=== PATIENT | female | born 1950 | race Caucasian/White ===

== ENCOUNTER 2023-03-21 16:02 | Inpatient (IN) | payer MEDICARE, SELFPAY ==
[2023-03-21] VITALS (28 sets, daily range): BP systolic 93–169; BP diastolic 59–77; PULSE 83–104; RESP 16–18; TEMP 36.5; O2SAT 96–100; BMI 38.0
--- NOTE | ~2023-03-21 | XR_ITS ---
EXAMINATION: XR chest 2V Exam Date/Time: 03/21/2023 17:45 CDT HISTORY: weakness Comparison: None. RESULT: Lines, tubes, and devices: Cholecystectomy clips. Cervical fusion hardware. Anterior soft tissue hilary iccation/artifact. Lungs and pleura: Low volumes with crowding. Senescent change. No focal consolidation, effusion, or pneumothorax. Cardiomediastinal silhouette: Aortic arch calcification. Other: No acute osseous or upper abdominal finding. IMPRESSION: No acute cardiopulmonary process. Reviewed, dictated and finalized at location K.
--- NOTE | ~2023-03-21 | CT_ITS ---
EXAMINATION: CTA chest PE protocol DATE: 03/21/2023 19:13 INDICATION: syncope, chest pressure, +dimer/trop TECHNIQUE: Computed tomography angiography (CTA) of the chest was performed with 100 mL Omnipaque-350 intravenous contrast timed to evaluate the pulmonary arteries. Coronal maximum intensity projection 3D-reconstructions were created by the technologist. The dose-length product (DLP) was 490.42 mGy-cm. Automated exposure control and iterative reconstruction technique were employed. COMPARISON: None. FINDINGS: Lung parenchyma and airways: Mild diffuse reticulonodular opacities. The airways are clear.. Pleura: Unremarkable. Thoracic inlet, axillae and chest wall: Unremarkable. Thoracic aorta: No significant dilation. Moderate arch calcification. Mediastinum: Prominent prevascular node measuring up to 9 mm in short axis diameter. Heart and pericardium: Normal. Coronary artery calcifications: Moderate. Upper abdomen: Cholecystectomy. Pneumobilia. Fatty atrophy of the pancreas. Bones: No acute osseous finding. Incompletely visualized cervical fusion hardware. Pulmonary arteries: Study quality: Adequate. No pulmonary emboli detected. IMPRESSION: No CT evidence of acute pulmonary embolus. Mild respiratory bronchiolitis. Reviewed, dictated and finalized at location K.
--- NOTE | 2023-03-21 16:56 | ECG_ITS ---
Measurements Intervals [place] Rate: 82 P: 48 ND: 201 QRS: 6 QRSD: 77 T: -12 QT: 375 QTc: 439 Interpretive Statements SINUS RHYTHM LOW QRS VOLTAGE IN PRECORDIAL LEADS [QRS DEFLECTION < 1.0 mV IN CHEST LEADS] MODERATE T-WAVE ABNORMALITY, CONSIDER ANTEROLATERAL ISCHEMIA [-0.1+ mV T WAVE IN V3-V6] ABNORMAL ECG NO PREVIOUS ECG AVAILABLE FOR COMPARISON Electronically Signed On 03-22-2023 7:40:27 CDT by Yariel Mckeon M.D.
[2023-03-21 17:11] LABS: Basophils Absolute Auto 0.1 K/mm3 (0.0-0.1); Basophils Percent Auto 0.9 % (0.2-1.2); Eosinophils Absolute Auto 0.1 K/mm3 (0-0.3); Hematocrit 44.1 % (37.0-47.0); Hemoglobin 14.4 g/dL (12.0-15.0); Immature Granulocyte Absolute 0.05 K/mm3 (0.00-0.031); Immature Granulocyte Percent A 0.6 % (0-0.5); Lymphocytes Absolute Auto 1.42 K/mm3 (0.9-3.2); Lymphocytes Percent Auto 17.8 % (18.3-44.2); Mean Corpuscular HGB Conc 32.7 g/dl (32-36); Mean Corpuscular Hemoglobin 34.2 pg (26-34); Mean Corpuscular Volume 104.8 fl (80-100); Mean Platelet Volume 9.6 fl (7.4-10.4); Monocytes Absolute Auto 1.4 K/mm3 (0.1-0.6); Monocytes Percent Auto 16.9 % (2.6-8.5); Neutrophils Percent Auto 62.8 % (45.5-73.1); Platelet Count Result 229 k/mm3 (150-375); Red Blood Count 4.21 M/mm3 (4.2-5.4); Red Cell Distribution Width 12.4 % (11.5-14.5)
[2023-03-21 17:24] LABS: Alanine Aminotransferase 23 U/L (6-35); Alkaline Phosphatase 121 U/L (38-126); Anion Gap 10 mmol/L (8-16); Aspartate Amino Transferase 47 U/L (14-36); Blood Urea Nitrogen 20 mg/dL (7-17); Calcium 9.5 mg/dL (8.4-10.2); Carbon Dioxide 27 mmol/L (22-30); Chloride 95 mmol/L (98-107); Creatine Kinase 92 U/L (30-135); Estimated CRCL calculation 38 ml/min; Estimated Glomerular Filt Rate 40; Glucose 93 mg/dL (65-110); Magnesium 2.1 mg/dL (1.6-2.3); Potassium 3.6 mmol/L (3.4-5.0); Sodium 132 mmol/L (137-145)
[2023-03-21 17:27] LABS: Partial Thromboplastin Time 34.6 SECONDS (22.3-36.8)
--- NOTE | 2023-03-21 17:42 | ED.WEAKNESS ---
HPI - Weakness General Chief complaint: Weakness <CRISTINA Salmeron Last Filed: 03/21/23 22:58> Stated complaint: WEAK/ DEHYDRATED <CRISTINA Salmeron Last Filed: 03/21/23 22:58> Time Seen by Provider: 03/21/23 16:57 <CRISTINA Salmeron Last Filed: 03/21/23 22:58> Source: patient <CRISTINA Salmeron Last Filed: 03/21/23 22:58> Mode of arrival: EMS <CRISTINA Salmeron Last Filed: 03/21/23 22:58> Limitations: no limitations <CRISTINA Salmeron Last Filed: 03/21/23 22:58> History of Present Illness HPI Narrative: Patient is a 72 y/o female who presents to the ED via EMS with c/o weakness and near syncopal episode. Patient reports she has been dealing with gastrointestinal issues for the last 1 month. She has been on a clear liquid diet with decreased intake due to the symptoms. She was diagnosed with functional dyspepsia. She underwent a CT scan and EGD within the last 1 week at an outside hospital which showed stomach irritation, but biopsies were negative. Her Prilosec and gabapentin was increased and patient has been doing much better with this since. She does still complain of intermittent nausea. Patient then had a cortisone injection in her back at the [facility] in [place] today. She states she tried standing up after the injection, but complained of weakness, dizziness, lightheadedness, chest pressure, nausea. She states she was told her blood pressure was dropping at that time. She rested in the clinic for another hour, but developed the same symptoms when she stood up again. States chest pressure persisted approx 5 minutes until she sat down to rest. EMS was then called to bring the patient here. Patient denies any chest pain or pressure currently. Denies feeling short of breath. Denies significant abdominal pain at this time. Denies lower extremity pain or swelling. <CRISTINA Salmeron Last Filed: 03/21/23 22:58> Related Data Home medications: Home Medications Medication Instructions Recorded Confirmed amlodipine 5 mg tablet 5 mg PO DAILY 03/21/23 03/21/23 furosemide 20 mg tablet 20 mg PO DAILY 03/21/23 03/21/23 gabapentin 100 mg capsule 100 mg PO QPM 03/21/23 03/21/23 gabapentin 100 mg capsule 200 mg PO Q6H 03/21/23 03/21/23 hydrocodone 7.5 mg-acetaminophen 1 tablet PO Q6H 03/21/23 03/21/23 325 mg tablet isosorbide mononitrate 60 mg 60 mg PO DAILY 03/21/23 03/21/23 tablet,extended release 24 hr metoprolol succinate 25 mg 12.5 mg PO DAILY 03/21/23 03/21/23 tablet,extended release 24 hr omeprazole 20 mg capsule,delayed 40 mg PO BID 03/21/23 03/21/23 release ranolazine 1,000 mg 1,000 mg PO BID 03/21/23 03/21/23 tablet,extended release,12 hr rosuvastatin 40 mg tablet 40 mg PO DAILY 03/21/23 03/21/23 zolpidem 10 mg tablet 10 mg PO QHS 03/21/23 03/21/23 <Beryl Barr PA-C - Last Filed: 03/21/23 22:58> Allergies/Adverse reactions: Allergies Allergy/AdvReac Type Severity Reaction Status Date / Time ketorolac [From Toradol] AdvReac Gastrointestinal Verified 03/21/23 16:17 Upset <Beryl Barr PA-C - Last Filed: 03/21/23 22:58> Review of Systems Review of Systems: CONSTITUTIONAL: Denies fever, chills, or sweats. CARDIOVASCULAR: See HPI. RESPIRATORY: Denies cough or dyspnea. GASTROINTESTINAL: See HPI. MUSCULOSKELETAL: Denies back pain, joint pain, or myalgia. NEUROLOGIC: See HPI. <Beryl Barr PA-C - Last Filed: 03/21/23 22:58> All systems reviewed & are unremarkable except as noted in HPI and below <Beryl Barr PA-C - Last Filed: 03/21/23 22:58> [facility] Family History Family History: Family History (Updated 03/21/23 @ 22:17 by Francisco Rincon RN) Mother Diabetes mellitus Hx of CABG Uterine cancer Father Hx of CABG Sibling Hx of CABG <Beryl Barr PA-C - Last Filed: 03/21/23 22:58> Social Hi
[2023-03-21 17:46] LABS: Troponin I 0.049 ng/mL (0.000-0.034)
[2023-03-21 18:17] LABS: NT Pro B Type Natriuretic Pept 1150 pg/mL (19.9-100)
[2023-03-21] MEDS: SODIUM CHLORIDE 0.9% IV 1,000 ML 999 ML IV CONT ×2 (18:26→21:15)
[2023-03-21 18:48] LABS: D Dimer 1.43 ug/mL (<0.48)
[2023-03-21 20:14] LABS: Appearance Urine Cloudy (Clear); Bacteria Urine 1+ /hpf; Bilirubin Urine Negative (Negative); Blood Urine Trace (Negative); Color Urine Dark Yellow (Yellow); Glucose Urine UA Negative (Negative); Granular Casts Urine Present /lpf; Ketones Urine Trace mg/dL (Negative); Leukocyte Esterase Ur 2+ LEU/UL (Negative); Need Manual Microscopic Reviewed; Nitrate Urine Negative (Negative); Protein Urine 2+ mg/dL (Negative); Specific Grav Ur 1.023 (1.001-1.035); Squamous Epithelial Cell Urine Moderate /hpf (Few); WBC Urine 21-50 /hpf; pH Urine 5.5 (5.0-9.0)
[2023-03-21 20:15] LABS: Add Urine Microscopic? YES
--- NOTE | 2023-03-21 22:07 | PM.IMHP ---
H&P: HPI History of Present Illness Date/Time: 03/21/23 22:07 Chief Complaint: Dyspepsia, abdominal pain, chest heaviness, dizziness Narrative: This is a 72-year-old female with a significant past medical history of congestive heart failure, cardiac angina, minimal coronary artery disease diagnosed with catheterization over 10 years ago 40% stenoses of multiple coronary arteries per patient's history, nobody musculoskeletal pain from multiple neck surgeries on on pain medications, hypertension, hyperlipidemia, who presented acutely from the [facility] clinic in [place] after the patient had a cortisone injection in her back. She acutely developed nausea chest pressure lightheadedness weakness and dizziness. She was told her blood pressure was dropping at that time. She rested in the clinic for an hour but then developed the same symptoms again when she stood up. She was positive for orthostatic hypotension at the clinic when she was assessed. The chest pressure persisted until she sat down to rest. The EMS was then called to bring the patient here. This history started 3 weeks ago. The patient was not eating 3 weeks ago saw a GI specialist last Saturday at [facility] in [place]. Time skip 1 g per day. Her Prilosec was increased from 20 mg per day to 40 mg twice a day per day. The patient had a CT scan showing gastritis. The patient also had a biopsy which was negative for H pylori. When she increase the gabapentin dose 1 week ago, she began having heart palpitations. Today the patient went to the [facility] clinic to get an injection. When she stood up after sitting down get the injection she got dizzy and started having chest heaviness. In the ER the patient was again assess for orthostatic hypotension and was again positive. She was given 2 L normal saline bolus. When we assessed the orthostatic vital signs about 10 minutes ago, they were negative. EKG showed T-wave inversions in the anterolateral leads. No prior EKG is present for comparison. First baseline troponin was elevated 0.049. Second troponin was elevated at 0.05. BNP was elevated to 11 50. Chest x-ray does not show evidence of pulmonary edema. D-dimer was elevated to 1.43. CTA was negative for acute evidence of pulmonary embolus. It did show mild bronchiolitis. The patient did have coronary artery calcifications that were moderate but these were not greatly assessed with this study. The patient is seen at [facility] as an outpatient. Her websphere portal developer is Dr. Remi Medel- [phone]. She carries a diagnosis of congestive heart failure of unknown type, CAD of unknown type as well, typical angina on Ranexa for episodes of angina at home. The patient's family history is positive for bypass surgery in both her mom, dad, and brothers. Of note, the patient's past medical history is relevant for over 13 biliary procedures and stents that the patient has had. This problem was not fully evaluated as it was not exactly relevant to her current medical problem. Review of Systems Review of Systems: Negative otherwise specified in the [facility] Family History Family History Mother Diabetes mellitus Hx of CABG Uterine cancer Father Hx of CABG Sibling Hx of CABG Comments The patient worked as a nurse for 30 years. Twenty-two years in [employer] and 8 years in the longterm. She retired in 2013. She has no history of drinking or smoking. She gets back injections every 3 months. She also does bowling recreationally. She could walk up until 3 weeks ago. Now she uses a walker. Meds Home Medications and Allergies Allergies Allergy/AdvReac Type Severity Reaction Status Date / Time ketorolac [From Toradol] AdvReac Gastrointestinal Verified 03/21/23 16:17 Upset Vital Signs Vital Signs - 24 hr 03/21/23 15:59 03/21/23 16:16 03/21/23 16:30 Pulse Rate 88 Respiratory Rate 18 Blood Pressure 169/64 H Pulse Oximetry 97 100 100 Oxygen Delivery
--- NOTE | 2023-03-21 22:28 | ADMGEN ---
This patient, Malgorzata Almonte, was admitted to IMU Room 214-01. Patient/family oriented to hospital policies and general routines including ID bracelet, bed and alarms, visiting hours, pain management, procedures, bathroom and other care routines, personal items, smoking policy, room service/diet, and visiting hours. Information on how to activate the Rapid Response Team has been discussed. Patient/Family are encouraged to report perceived risks to care and to ask questions if they do not understand what they are told or what they should do.
[2023-03-21] MEDS: RANOLAZINE 500 MG TAB.ER.12H 1000 MG PO (23:08)
[2023-03-21] MEDS: HYDROcodone/acetaminophen (*CRX) 7.5-325 MG TABLET 1 TAB PO (23:09)
[2023-03-21] MEDS: CLOPIDOGREL BISULFATE 300 MG TABLET PO (23:09)
[2023-03-21] MEDS: PANTOPRAZOLE 40 MG TABLET PO (23:10)
[2023-03-21] MEDS: GABAPENTIN 300 MG CAPSULE PO (23:10)
[2023-03-21 23:35] LABS: Troponin I 0.058 ng/mL (0.000-0.034)
[2023-03-22] VITALS (21 sets, daily range): BP systolic 108–147; BP diastolic 48–69; PULSE 78–101; RESP 14–20; TEMP 36.1–36.8; O2SAT 99–100; BMI 38.0
--- NOTE | 2023-03-22 05:00 | ECG_ITS ---
Measurements Intervals [place] Rate: 84 P: -21 GA: 164 QRS: 6 QRSD: 90 T: -45 QT: 398 QTc: 471 Interpretive Statements SINUS RHYTHM MODERATE T-WAVE ABNORMALITY, CONSIDER ANTEROLATERAL ISCHEMIA [-0.1+ mV T WAVE IN V3-V6] ABNORMAL ECG COMPARED TO ECG 03/21/2023 17:07:35 NO SIGNIFICANT CHANGES Electronically Signed On 03-22-2023 7:45:44 CDT by Yariel Mckeon M.D.
[2023-03-22 05:57] LABS: Hematocrit 37.4 % (37.0-47.0); Hemoglobin 12.4 g/dL (12.0-15.0); Mean Corpuscular HGB Conc 33.2 g/dl (32-36); Mean Corpuscular Hemoglobin 34.8 pg (26-34); Mean Corpuscular Volume 105.1 fl (80-100); Mean Platelet Volume 9.3 fl (7.4-10.4); Platelet Count Result 187 k/mm3 (150-375); Red Blood Count 3.56 M/mm3 (4.2-5.4); White Blood Count 4.6 K/mm3 (4.5-10.0)
[2023-03-22 06:09] LABS: Alanine Aminotransferase 20 U/L (6-35); Albumin Level 3.2 g/dL (3.5-5.1); Alkaline Phosphatase 95 U/L (38-126); Anion Gap 7 mmol/L (8-16); Aspartate Amino Transferase 40 U/L (14-36); Bilirubin,Total 0.7 mg/dL (0.2-1.3); Blood Urea Nitrogen 18 mg/dL (7-17); Calcium 8.9 mg/dL (8.4-10.2); Carbon Dioxide 24 mmol/L (22-30); Chloride 102 mmol/L (98-107); Estimated CRCL calculation 45 ml/min; Estimated Glomerular Filt Rate 49; Glucose 102 mg/dL (65-110); Magnesium 2.1 mg/dL (1.6-2.3); Potassium 3.9 mmol/L (3.4-5.0); Sodium 133 mmol/L (137-145)
[2023-03-22 06:21] LABS: Troponin I 0.085 ng/mL (0.000-0.034)
[2023-03-22] MEDS: ENOXAPARIN 100 MG/ML SYRINGE 95 MG SUB-Q (06:52)
[2023-03-22] MEDS: HYDROcodone/acetaminophen (*CRX) 7.5-325 MG TABLET 1 TAB PO ×3 (06:56→22:11)
[2023-03-22] MEDS: ROSUVASTATIN 20 MG TABLET 40 MG PO (08:46)
[2023-03-22] MEDS: FUROSEMIDE 40 MG TABLET PO (08:46)
[2023-03-22] MEDS: PANTOPRAZOLE 40 MG TABLET PO ×2 (08:46→20:05)
[2023-03-22] MEDS: ASPIRIN 81 MG ENTERIC TABLET PO (08:46)
[2023-03-22] MEDS: amLODIPine BESYLATE 5 MG TABLET 10 MG PO (08:46)
[2023-03-22] MEDS: RANOLAZINE 500 MG TAB.ER.12H 1000 MG PO ×2 (08:46→20:05)
[2023-03-22] MEDS: METOPROLOL SUCCINATE EXT REL 12.5 MG TABCR PO (08:47)
[2023-03-22] MEDS: CLOPIDOGREL BISULFATE 75 MG TABLET PO (08:47)
[2023-03-22] MEDS: GABAPENTIN 300 MG CAPSULE PO ×3 (08:47→17:20)
--- NOTE | 2023-03-22 12:27 | PM.IMPN ---
Progress Note: A&P Assessment and Plan (1) NSTEMI (non-ST elevated myocardial infarction): Code(s): I21.4 - Non-ST elevation (NSTEMI) myocardial infarction Status: Acute Assessment and Plan: The patient has had an NSTEMI. Continue aspirin Plavix Cardiology consulted Hold beta-frieda in case patient goes for a stress test. Keep NPO Continue Norvasc 10 mg per day Continue Lasix 40 mg per day Continue Ranexa 1000 mg twice a day Continue Crestor 40 mg per day (2) Orthostatic hypotension: Code(s): I95.1 - Orthostatic hypotension Status: Acute Assessment and Plan: This problem has resolved Hold Lasix since patient is NPO (3) Chronic pain: Code(s): G89.29 - Other chronic pain Status: Acute Assessment and Plan: Continue p.r.n. [place] 7.5 mg q.6 hours for musculoskeletal pain Continue gabapentin 900 mg per day (4) Vitamin D deficiency: Code(s): E55.9 - Vitamin D deficiency, unspecified Status: Acute Assessment and Plan: Continue patient's home vitamin-D (5) Dyspepsia: Code(s): R10.13 - Epigastric pain Status: Acute Assessment and Plan: Continue Prilosec 40 mg twice a day Subjective Date/time seen: 03/22/23 12:27 Interval history: No chest pain at present Review of Systems Review of Systems: Negative otherwise specified in the HPI Exam Narrative: Gen: calm middle aged woman in NAD HENT: unremarkable Eyes: EOMI Neck: supple, full ROM Lungs: CTAB CV: rrr, s1, s1, 2/6 early SM at the L[facility] Neuro: Normal Musculoskeletal: Normal Objective Data Vital Signs Vital Signs: Vital Signs - 24 hr 03/21/23 15:59 03/21/23 16:16 03/21/23 16:30 Temperature Pulse Rate 88 Respiratory Rate 18 Blood Pressure 169/64 H Pulse Oximetry 97 100 100 Oxygen Delivery Room Air 03/21/23 16:32 03/21/23 16:45 03/21/23 17:00 Temperature Pulse Rate Respiratory Rate Blood Pressure 167/77 H Pulse Oximetry 100 100 99 Oxygen Delivery 03/21/23 17:02 03/21/23 17:15 03/21/23 17:58 Temperature Pulse Rate 85 Respiratory Rate Blood Pressure 139/72 145/68 H Pulse Oximetry 99 99 Oxygen Delivery 03/21/23 18:00 03/21/23 18:01 03/21/23 17:30 Temperature Pulse Rate 84 87 Respiratory Rate Blood Pressure 136/68 113/60 Pulse Oximetry 99 Oxygen Delivery 03/21/23 17:32 03/21/23 17:47 03/21/23 18:09 Temperature Pulse Rate Respiratory Rate Blood Pressure 140/76 Pulse Oximetry 100 100 Oxygen Delivery 03/21/23 18:21 03/21/23 18:36 03/21/23 20:04 Temperature Pulse Rate 88 Respiratory Rate 17 Blood Pressure 93/65 L Pulse Oximetry 100 100 100 Oxygen Delivery 03/21/23 20:32 03/21/23 19:15 03/21/23 19:35 Temperature Pulse Rate 83 Respiratory Rate 16 Blood Pressure 112/71 Pulse Oximetry 99 98 100 Oxygen Delivery 03/21/23 19:45 03/21/23 20:58 03/21/23 21:05 Temperature Pulse Rate 86 86 Respiratory Rate 18 16 Blood Pressure 124/59 L Pulse Oximetry 100 98 96 Oxygen Delivery 03/21/23 21:30 03/21/23 21:35 03/21/23 21:42 Temperature Pulse Rate 88 98 104 H Respiratory Rate Blood Pressure 135/66 145/74 H 147/69 H Pulse Oximetry Oxygen Delivery 03/21/23 22:10 03/22/23 00:00 03/22/23 00:00 Temperature 97.7 F 97.8 F Pulse Rate 88 94 83 Respiratory Rate 18 18 Blood Pressure 132/73 145/52 H Pulse Oximetry 100 100 Oxygen Delivery 03/22/23 02:00 03/22/23 04:00 03/22/23 04:00 Temperature 97.6 F Pulse Rate 79 84 80 Respiratory Rate 18 Blood Pressure 135/58 L Pulse Oximetry 100 Oxygen Delivery 03/22/23 06:00 03/22/23 08:26 03/22/23 08:00 Temperature 97.4 F L Pulse Rate 82 83 Respiratory Rate 20 Blood Pressure 135/56 L Pulse Oximetry 100 Oxygen Delivery Room Air 03/22/23 08:00 03/22/23 10:00 03/22/23 12:00 Temperature Pulse Rate
--- NOTE | 2023-03-22 13:02 | PM.CNCAR ---
Assessment and Plan Assessment and plan (1) Chest pressure: Code(s): R07.89 - Other chest pain Status: Acute (2) Elevated troponin: Code(s): R77.8 - Other specified abnormalities of plasma proteins Status: Acute Plan This is a 72-year-old woman with a multitude of complaints among which are worsening exertional shortness of breath and chest pain she is known to have coronary artery disease that has been managed medically for the last decade. She has troponin levels that are elevated but not really in a concerning pattern rising and falling but rather flat. Her electrocardiogram is significantly abnormal unfortunately we have no previous records are ECGs with which to compare. In this setting I believe we should proceed with a follow-up angiogram. The patient was presented with the options of intensifying her medical therapy in having this done by her established manager surgical or proceeding here at [facility]. She wishes to proceed at our hospital so I will make plans for that this afternoon. Further recommendations will be forthcoming after the angiogram Yariel Mckeon MD [facility] History of Present Illness History of Present Illness Consult date/time: 03/22/23 13:02 Reason For Visit: Near Syncope, Chest Pain, Elevated Troponin, HEART Narrative: This is a 72-year-old woman with a rather complex and somewhat confusing history. I am seeing her at the request of the hospitalist because of concern regarding acute coronary syndrome/non ST elevation AR. According to the patient she is a fairly good historian she is known to have coronary artery disease that has been angiographically mild and has been managed by a manager surgical elsewhere for about a decade. She describes having some chest pain about 10 years ago having had a stress test which was abnormal which led to an angiogram that was done at another hospital. She has been doing well with medical therapy interestingly this has included Ranexa amlodipine metoprolol and isosorbide as well as rosuvastatin. She states that she was brought to this hospital yesterday because she was having symptoms of problematic orthostasis which occurred after a pain injection was given to her in the back. She has been having difficulty with chronic back pain and receiving injections. Yesterday apparently after she got a back injection she was feeling poorly and was significantly orthostatic. They apparently gave her some fluid watched her for about an hour in this problem continued and so she was sent to the emergency department. It sounds like separate from this she has also been having worsening exertional dyspnea with chest pain for the last several weeks. She describes chest heaviness and shortness of breath with modest activities walking about the house. She did not bring the symptoms to the attention of her physicians. After admission to the hospital here yesterday the patient's electrocardiogram was found to show some precordial T-wave inversions although we do not have any old ECGs for comparison. Her troponin levels were sampled x4 sets are out of normal range but are relatively flat. She was started on anti-platelet therapy by the hospitalist given some Lovenox yesterday with the last injection this morning. In this setting I am asked to see her in consultation. Review of Systems Constitutional: Constitutional: Reports lethargy Eyes: Eyes: Reports no additional eye complaints ENT: Reports system reviewed and no additional complaints, except as documented Cardiovascular: Cardiovascular: Reports as per HPI and Reports chest pain Respiratory: Respiratory: Reports dyspnea on exertion Gastrointestinal: Gastrointestinal: Reports as per HPI Musculoskeletal: Musculoskeletal: Reports as per HPI and Reports back pain Integumentary/Breasts: Skin/Breast: Reports system reviewed and no additional complaints, except as docu Neurologic: Reports system reviewed and no
--- NOTE | 2023-03-22 13:14 | WPDMODSED ---
Moderate Sedation Note-Pt Data Patient Data Diagnosis: Coronary artery disease being treated medically Recent worsening exertional dyspnea with chest discomfort Elevated troponin Present Complaint: Exertional shortness of breath with chest pain Procedure to be performed/Plan: Left heart catheterization Allergies Allergy/AdvReac Type Severity Reaction Status Date / Time ketorolac [From Toradol] AdvReac Gastrointestinal Verified 03/21/23 16:17 Upset Home Medications Medication Instructions Recorded Confirmed Type amlodipine 5 mg tablet 5 mg PO DAILY 03/21/23 03/21/23 History furosemide 20 mg tablet 20 mg PO DAILY 03/21/23 03/21/23 History gabapentin 100 mg capsule 100 mg PO QPM 03/21/23 03/21/23 History gabapentin 100 mg capsule 200 mg PO Q6H 03/21/23 03/21/23 History hydrocodone 7.5 mg-acetaminophen 1 tablet PO Q6H 03/21/23 03/21/23 History 325 mg tablet isosorbide mononitrate 60 mg 60 mg PO DAILY 03/21/23 03/21/23 History tablet,extended release 24 hr metoprolol succinate 25 mg 12.5 mg PO DAILY 03/21/23 03/21/23 History tablet,extended release 24 hr omeprazole 20 mg capsule,delayed 40 mg PO BID 03/21/23 03/21/23 History release ranolazine 1,000 mg 1,000 mg PO BID 03/21/23 03/21/23 History tablet,extended release,12 hr rosuvastatin 40 mg tablet 40 mg PO DAILY 03/21/23 03/21/23 History zolpidem 10 mg tablet 10 mg PO QHS 03/21/23 03/21/23 History Current Medications: Active Medications Hydrocodone Bitart/Acetaminophen (Hydrocodone/Acetaminophen (*Crx) 7.5-325 Mg Tablet) 1 tab PO Q6H PRN PRN Reason: Pain Rated 7-10 Last Admin: 03/22/23 06:56 Dose: 1 tab Amlodipine Besylate (Amlodipine Besylate 5 Mg Tablet) [address] [facility] Last Admin: 03/22/23 08:46 Dose: 10 mg Aspirin (Aspirin 81 Mg Enteric Tablet) [address] [facility] Last Admin: 03/22/23 08:46 Dose: 81 mg Clopidogrel Bisulfate (Clopidogrel Bisulfate 75 Mg Tablet) [address] [facility] Last Admin: 03/22/23 08:47 Dose: 75 mg Gabapentin (Gabapentin 300 Mg Capsule) 300 mg PO TID [facility] Last Admin: 03/22/23 13:05 Dose: 300 mg Pantoprazole Sodium (Pantoprazole 40 Mg Tablet) 40 mg PO Q12HR [facility] Last Admin: 03/22/23 08:46 Dose: 40 mg Ranolazine (Ranolazine 500 Mg Tab.Er.12h) 1,000 mg PO Q12HR [facility] Last Admin: 03/22/23 08:46 Dose: 1,000 mg Rosuvastatin Calcium (Rosuvastatin 20 Mg Tablet) 40 mg PO QAM [facility] Last Admin: 03/22/23 08:46 Dose: 40 mg Sedation/Anesthesia: No previous sedation/anesthesia problems (including family history). [facility] Family History Family History (Updated 03/21/23 @ 22:17 by Francisco Rincon RN) Mother Diabetes mellitus Hx of CABG Uterine cancer Father Hx of CABG Sibling Hx of CABG Social History Social History Smoking status: Never smoker Alcohol intake: never Substance use: never Lack of Transportation: No Lack of Food: Never True Current Housing: I Have Housing Concerned About Future Housing: No Difficulty Paying Gas/Electric Bills: No Difficulty Paying for Meds: No Currently Unemployed: No Education: Associate Degree Difficulty w/ Childcare or Family Care: No Spiritual care concerns: No Mod Sed Physical Exam Physical Exam Pre Procedural Exam: Normal: Neck (Difficult to assess JVD because of obesity), Throat, Airway, Lungs, Heart Size, Heart Rate (Grade 2/6 systolic murmur at the left sternal border), Heart Rhythm, Neuro Exam and Extremities and Variation: Appearance (Pleasant obese white female no distress) Hours since solid foods: 12 Hours since liquid intake: 12 Mallampati Classification: class II Internal Medicine - PN: Obj Da Vital Signs Vital Signs: Vital Signs - 24 hr 03/21/23 15:59 03/21/23 16:16 03/21/23 16:30 Temperature Pulse Rate 88 Respiratory Rate 18 Blood Pressure 169/64 H Pulse Oximetry 97 100 100 Oxygen Delivery Room Air 03/21/23 16:32 03/21/23 16:45 03/21/23 17:00 Temperature Puls
--- NOTE | 2023-03-22 14:08 | WPDCARDPROC ---
Cardiac Cath Procedure Note Date of procedure:: 03/22/23 Performing physician:: Yariel Mckeon MD Indication:: history of coronary artery disease being treated medically ACS/non STEMI Brief clinical history:: this is a 72-year-old woman history of hypertension, obesity and reported history of angiographically mild coronary disease which is being treated medically. She was admitted to the hospital with orthostatic hypotension which became problematic after pain injection in her back. She also has a history of exertional chest discomfort is worsening in recent weeks. Troponin levels have been sampled are elevated but flat. ECG shows precordial T-wave inversions. In this setting follow-up angiography has been recommended. Procedure Procedure performed:: Left ventriculogram coronary angiogram Angio-Seal to right femoral artery Sedation/Medication given:: fentanyl 50 mg Versed 2 mg case start 1347 p.m. case end time 2:05 p.m. sedation provided by Therese Gorman RN, trained observer Access site:: right femoral artery Estimated blood loss:: 20 cc Procedure note:: patient was brought to the cardiac catheterization lab in the postabsorptive state the right femoral triangle was prepared and draped in the usual fashion. Anesthesia was provided with 1% lidocaine infiltrated locally. Using the modified Seldinger technique a 5 Cymraes vascular sheath was placed in the right common femoral artery grade after this left heart catheterization was carried out. I used a 5 Cymraes angled pigtail catheter to measure left-sided hemodynamics and to inject LV g in the R AO projection. Following this I used a standard 5 Cymraes FL4 catheter to engage and inject the left coronary artery and 5 Cymraes JR4 catheter to engage and inject the right coronary artery. The cineangiograms were then reviewed and the case was terminated. An Angio-Seal device was deployed at the arterial puncture site following an angiogram of the femoral artery to confirm suitable sheath location. The very good hemostasis was provided with this. Procedure was well tolerated and uncomplicated. There was no evidence of groin hematoma when she left the cardiac catheterization lab. Findings:: Hemodynamics: Central aortic pressure is 124 over 50 left ventricle 128/0 end-diastolic 10 no gradient on pullback across the valve. Left ventricle: The LV is normal in size there is mild concentric hypertrophy identified there is hyperdynamic systolic function with visually estimated ejection fraction of 80%. The left main coronary artery is nicely patent and medium in caliber left anterior descending is a medium caliber artery giving rise to 2 diagonals and septal perforators. The LAD extends down to but not around the apex. The LAD is angiographically unremarkable. A very small high diagonal branch has minimal luminal irregularities but no functionally significant stenosis is seen. Circumflex is a medium caliber artery giving rise to the marginal branches. The circumflex system is angiographically free of disease. The right coronary artery is large in caliber and dominant to the posterior circulation. There is ostial calcification of the right coronary artery but there are no stenotic lesions seen throughout the extent of the vessel. Conclusion:: 1. Minimal coronary disease consisting of mild luminal irregularities in a small diagonal branch of the LAD as well as ostial calcification of the RCA but with no stenosis identified. 2. Hyperdynamic left ventricular systolic function 3. diagnosis of non ST elevation MO should be discarded Yariel Mckeon MD [facility]
[2023-03-22] MEDS: SODIUM CHLORIDE 0.9% IV 1,000 ML 125 ML IV CONT (15:12)
[2023-03-22] MEDS: ZOLPIDEM TARTRATE (*CRX) 5 MG TABLET 10 MG PO (21:07)
[2023-03-22] MEDS: CALCIUM CARBONATE (TUMS) 500 MG (200 MG ELEMENTAL) PO (21:07)
[2023-03-23] VITALS (9 sets, daily range): BP systolic 108–128; BP diastolic 51–58; PULSE 79–88; RESP 18–20; TEMP 36.2–36.9; O2SAT 99–100
[2023-03-23] MEDS: HYDROcodone/acetaminophen (*CRX) 7.5-325 MG TABLET 1 TAB PO ×2 (07:22→13:52)
--- NOTE | 2023-03-23 09:39 | PM.PNCARD ---
Progress Note: A&P Assessment and Plan (1) Elevated troponin: Code(s): R77.8 - Other specified abnormalities of plasma proteins Status: Acute (2) Chest pressure: Code(s): R07.89 - Other chest pain Status: Acute Plan 72-year-old lady with angiographically minimal coronary disease. I would treat her with just low-dose aspirin and nothing else in my opinion. She has been following with another clinical pharmacy specialist for a number of years. I would consider stable for discharge today from my perspective and she can follow up with her established clinical pharmacy specialist. Yariel Mckeon MD [facility] Subjective Date/time seen: Date of service: 03/23/23 09:39 Interval history: Follow-up visit in this 72-year-old lady with: Symptoms of intermittent chest pain [place] and a multitude of other symptoms including problematic/symptomatic orthostasis following pain injection in her back prompting admission here. Catheterization done yesterday demonstrated angiographically minimal coronary artery plaquing. No cardiovascular complaints this morning Exam Const: General: comfortable and no acute distress Other: Pleasant obese white female no distress HENMT: Mouth: Yes moist mucous membranes Eyes: Sclera: sclerae normal Neck: Neck: supple Resp: Effort & Inspection: normal respiratory effort Auscultation: clear to auscultation bilaterally Cardio: Rate: regular rate Rhythm: regular rhythm Skin: General skin exam: normal color Neuro: Other: Alert and oriented x3 Extrem: Other: No edema, good pulses Objective Data Vital Signs Vital Signs: Vital Signs - 24 hr 03/22/23 10:00 03/22/23 12:00 03/22/23 12:26 Temperature 36.3 C L Pulse Rate 84 85 Respiratory Rate 18 Blood Pressure 130/53 L Pulse Oximetry 100 Oxygen Delivery Room Air 03/22/23 12:00 03/22/23 14:45 03/22/23 14:30 Temperature Pulse Rate 83 80 78 Respiratory Rate 16 14 Blood Pressure 114/63 108/48 L Pulse Oximetry 100 100 Oxygen Delivery Room Air Room Air 03/22/23 15:00 03/22/23 15:15 03/22/23 15:30 Temperature Pulse Rate 79 83 82 Respiratory Rate 20 18 16 Blood Pressure 109/50 L 120/54 L 114/55 L Pulse Oximetry 100 100 100 Oxygen Delivery Room Air Room Air Room Air 03/22/23 14:00 03/22/23 16:00 03/22/23 16:37 Temperature 36.8 C Pulse Rate 84 87 Respiratory Rate 20 Blood Pressure 147/53 H Pulse Oximetry 100 Oxygen Delivery Room Air 03/22/23 16:00 03/22/23 17:07 03/22/23 18:00 Temperature 36.7 C Pulse Rate 92 94 101 H Respiratory Rate 18 Blood Pressure 122/69 Pulse Oximetry 99 Oxygen Delivery 03/22/23 20:00 03/22/23 20:00 03/22/23 22:00 Temperature 36.1 C L Pulse Rate 90 90 97 Respiratory Rate 18 Blood Pressure 108/54 L Pulse Oximetry 100 Oxygen Delivery 03/23/23 00:00 03/23/23 00:00 03/23/23 02:00 Temperature 36.2 C L Pulse Rate 84 84 81 Respiratory Rate 18 Blood Pressure 108/51 L Pulse Oximetry 100 Oxygen Delivery 03/23/23 04:00 03/23/23 04:00 03/23/23 06:00 Temperature 36.7 C Pulse Rate 79 85 81 Respiratory Rate 18 Blood Pressure 126/58 L Pulse Oximetry 100 Oxygen Delivery 03/23/23 08:23 Temperature 36.9 C Pulse Rate 85 Respiratory Rate 18 Blood Pressure 128/51 L Pulse Oximetry 100 Oxygen Delivery Intake/Output Intake/Output: Intake & Output 03/20/23 03/21/23 03/22/23 03/23/23 23:59 23:59 23:59 23:59 Intake Total 2050 690 1550 Output Total 1700 800 Balance 2050 -1010 750 Meds/Results Medications: Active Medications Generic Name Dose Route Start Last Admin Trade Name Freq PRN Reason Stop Dose Admin Hydrocodone Bitart/Acetaminophen 1 tab 03/21/23 22:31 03/23/23 07:22 Hydrocodone/Acetaminophen (*Crx) 7.5-325 Mg Tablet PO 1 tab Q6H PRN Administration Pain Rated 7-10 Amlodipine Besylate 10 mg 03/22/23 09:00 03/22/23 08:46 Amlodipine Besylate 5 M
[2023-03-23] MEDS: RANOLAZINE 500 MG TAB.ER.12H 1000 MG PO (09:48)
[2023-03-23] MEDS: ROSUVASTATIN 20 MG TABLET 40 MG PO (09:48)
[2023-03-23] MEDS: PANTOPRAZOLE 40 MG TABLET PO (09:49)
[2023-03-23] MEDS: ASPIRIN 81 MG ENTERIC TABLET PO (09:49)
[2023-03-23] MEDS: amLODIPine BESYLATE 5 MG TABLET 10 MG PO (09:49)
[2023-03-23] MEDS: GABAPENTIN 300 MG CAPSULE PO (09:49)
--- NOTE | 2023-03-23 12:43 | PM.DS ---
DS: Admitting Diagnosis Discharge Date 03/23/2023 Admitting Diagnosis Chest pain DS: Discharge Diagnosis Discharge Diagnosis (1) Chest pressure: Code(s): R07.89 - Other chest pain Status: Acute (2) Dyspepsia: Code(s): R10.13 - Epigastric pain Status: Acute DS: Summary Hospital Course Hospital Course: Patient presented admitted with chest pressure and also some epigastric pain. Cardiology was consulted. Patient underwent cardiac catheterization which showed: 1.? ? Minimal coronary disease consisting of mild luminal irregularities in a small diagonal branch of the LAD as well as ostial calcification of the RCA but with no stenosis identified. 2.? ? Hyperdynamic left ventricular systolic function Patient is currently asymptomatic. She likely has acid reflux for which she takes PPI twice a day. Patient is being discharged home Time Spent with Patient Time attestation: Total time spent providing and/or coordinating discharge services: Discharge Plan Discharge Consulting providers: Asim Griffin; Beryl Barr Discharging Clinician: Helio Joy Anticipated Discharge Date/Time: 03/23/23 12:42 Patient Disposition: Home, Self-Care Activity: no preference Diet: heart healthy Patient Instructions: Antibiotic Form, Enoxaparin (By injection), Heart Failure (GEN), Blood Thinners (GEN) Stand Alone Forms: General Discharge Information Follow-up/Referrals: Lebron,MD Alexx [Primary Care Provider] - Discharge Medications: Continued amlodipine 5 mg tablet 5 mg PO DAILY isosorbide mononitrate 60 mg tablet extended release 24 hr 60 mg PO DAILY hydrocodone-acetaminophen 7.5-325 mg tablet 1 tablet PO Q6H Rx Instructions: takes at 10-4 omeprazole 20 mg capsule,delayed release(DR/EC) 40 mg PO BID furosemide 20 mg tablet 20 mg PO DAILY gabapentin 100 mg capsule 200 mg PO Q6H Rx Instructions: takes at 10--10-4 gabapentin 100 mg capsule 100 mg PO QPM Rx Instructions: takes at 1800 metoprolol succinate 25 mg tablet extended release 24 hr 12.5 mg PO DAILY zolpidem 10 mg tablet 10 mg PO QHS rosuvastatin 40 mg tablet 40 mg PO DAILY ranolazine 1,000 mg tablet extended release 12 hr 1,000 mg PO BID Date of admission: 03/22/23 14:07 Primary Care Provider: LebronAlexx Admitting Provider: Mark Rodríguez Attending physician on admission: Helio Joy Condition: Stable
== END 2023-03-23 13:55 | disposition home or self-care (01) | DRG 287 ==
LOC: ANHED 18:21 → ANHIMU 21:12
PROVIDERS: Specialist; Admitting Provider Internal Medicine; Emergency Provider Physician Assistant; PCP Family Medicine; Visit Provider Hospitalist
PROC: 4A023N7 Measurement of Cardiac Sampling and Pressure, Left Heart, Percutaneous Approach (ICD-10-PCS; CPT 93452; principal; 2023-03-22 13:30)
PROC: 4A023N7 Measurement of Cardiac Sampling and Pressure, Left Heart, Percutaneous Approach (ICD-10-PCS; 2023-03-22 13:30)
DX: I95.1 Orthostatic hypotension (principal); I25.119 Atherosclerotic heart disease of native coronary artery with unspecified angina pectoris; K21.9 Gastro-esophageal reflux disease without esophagitis; K30 Functional dyspepsia; G89.29 Other chronic pain; E55.9 Vitamin D deficiency, unspecified; R77.8 Other specified abnormalities of plasma proteins; I11.0 Hypertensive heart disease with heart failure; I50.9 Heart failure, unspecified; E66.9 Obesity, unspecified; Z68.37 Body mass index [BMI] 37.0-37.9, adult
CPT/HCPCS: 36415; 71046; 71275; 80053; 81001; 82550; 83735; 83880; 84484; 85025; 85027; 85380; 85610; 85730; 87086; 87088; 93005; 93458; 96361; 96365; 96372; 99285; A9270; C1760; C1887; C1894; G0269; G0378; J0696; J1644; J1650; J2250; J3010; J7030; J7040; Q9967